=== PATIENT | male | born 1985 | race Caucasian/White ===

== ENCOUNTER → 2017-04-02 | Outpatient (CLI) | payer OTHER ==
--- NOTE | 2017-04-02 08:55 | Diagnostic Imaging Report ---
MRI of the left shoulder without contrast. History: Shoulder pain. Strain. Decreased range of motion. Pain worse with lifting weights. Comparison: None Technique: Coronal PD FS, sagital PD FS, and axial PD and PD FS. Findings: Rotator cuff: There is mild rotator cuff tendinosis without tear, muscle atrophy or retraction. Osseous acromion complex: There is a type II acromion with mild lateral downsloping. There is mild degenerative arthrosis at the acromioclavicular joint. Glenohumeral joint: The labrum is intact. The capsular structures are intact. The articular cartilage surfaces are intact. The humeral head is well-seated in the glenoid fossa. Biceps tendon: The biceps tendon is intact. Other findings: There is a moderate amount of bone marrow edema along the anterior humeral head best seen on sagittal series 5 image 14, coronal series 3 image 10 and axial series 2 image 19. This is may be due to a stress response/contusion. No cortical fracture is seen. Impression: Moderate bone marrow edema along the anterior humeral head may be due to a stress response/contusion. No cortical fracture is seen. Mild rotator cuff tendinosis without tear, muscle atrophy or retraction. Signed by: Dr. Thad An M.D. on 04/02/2017 8:51 AM
== END ==
LOC: MRI 07:37
PROVIDERS: ATTEND Family Medicine
DX: S46.912A Strain of unspecified muscle, fascia and tendon at shoulder and upper arm level, left arm, initial encounter (principal)